=== PATIENT | male | born 1940 | race Caucasian/White ===

== ENCOUNTER 2018-10-27 01:07 | Inpatient (IN) | payer MEDICARE, OTHER ==
[~2018-10-27] VITALS: Ht 177.8 cm; Wt 47.2 kg
[2018-10-27 03:06] LABS: BASOPHILS % (AUTO) 0 % (0-1); EOSINOPHILS # (AUTO) 0.4 X10'3 (0-0.9); EOSINOPHILS % (AUTO) 2.1 % (0-6); HEMOGLOBIN 10.7 g/dl (14.0-17.9); LYMPHOCYTES # (AUTO) 1.3 X10'3 (1.1-4.8); LYMPHOCYTES % (AUTO) 6.8 % (21-51); MEAN CORPUSCULAR HEMOGLOBIN 29.4 PG (27.0-31.0); MEAN CORPUSCULAR HGB CONC 31.5 % (33.0-36.5); MEAN CORPUSCULAR VOLUME 93.3 FL (78-98); MEAN PLATELET VOLUME 8.7 FL (7.4-10.4); MONOCYTES # (AUTO) 0.9 X10'3 (0-0.9); NEUTROPHILS % (AUTO) 86.1 % (42-75); PLATELET COUNT 199 X10'3 (140-440); RED BLOOD COUNT 3.64 X10'6 (4.70-6.10); RED CELL DISTRIBUTION WIDTH 15.2 % (11.5-14.5); WHITE BLOOD COUNT 18.6 X10'3 (4.5-11.0)
[2018-10-27 03:23] LABS: ALANINE AMINOTRANSFERASE 34 U/L (12-78); ALBUMIN 2.7 G/DL (3.4-5.0); ALBUMIN/GLOBULIN RATIO 0.7 (1.1-1.5); ALKALINE PHOSPHATASE 96 IU/L (46-116); ANION GAP -1 (8-16); ASPARTATE AMINO TRANSFERASE 42 U/L (10-37); BILIRUBIN,TOTAL 0.7 MG/DL (0.1-1.0); BLOOD UREA NITROGEN 63 MG/DL (7-18); BUN/CREATININE RATIO 35.8 (5.4-32.0); CALCIUM 9.8 MG/DL (8.5-10.1); CHLORIDE 102 MMOL/L (99-107); CREATININE 1.76 MG/DL (0.60-1.10); GLUCOSE 161 MG/DL (70-104); POTASSIUM 5.4 MMOL/L (3.5-5.1); SODIUM 140 MMOL/L (135-145); TOTAL CARBON DIOXIDE 39.3 MMOL/L (24-32); TOTAL PROTEIN 6.8 G/DL (6.4-8.2); eGFR 38 ML/MIN
[2018-10-27] MEDS: normal saline 1000ml 1,000 ML IV SCH ×2 (04:08→14:44)
[2018-10-27] MEDS ORDERED: acetaminophen 650mg rectal suppository RC PRN (04:10)
[2018-10-27] MEDS ORDERED: ondansetron/PF 4mg/2ml inj IV PRN (04:10)
[2018-10-27] MEDS ORDERED: morphine 4 MG/ML inj SYRINge IV PRN ×2 (04:10)
[2018-10-27] MEDS ORDERED: CARV6.252 PO (04:17)
[2018-10-27] MEDS ORDERED: FURO-150 PO (04:17)
[2018-10-27] MEDS ORDERED: COU2.5T PO (04:17)
[2018-10-27] MEDS ORDERED: POTA10CA44 PO (04:17)
[2018-10-27] MEDS ORDERED: FLO0.4C PO (04:17)
[2018-10-27] MEDS ORDERED: ALPR-623 PO (04:17)
[2018-10-27] MEDS ORDERED: ROSU20TA PO (04:17)
[2018-10-27] MEDS ORDERED: IPRA3AMP31 IH (04:17)
[2018-10-27] MEDS ORDERED: BUDE0.5A11 IH (04:37)
[2018-10-27] MEDS ORDERED: SERIN IH (04:37)
[2018-10-27] MEDS ORDERED: DIGO125T PO (04:37)
[2018-10-27] MEDS ORDERED: AMIO200T40 PO (04:37)
[2018-10-27] MEDS ORDERED: NITR0.4T51 SL (04:37)
[2018-10-27] MEDS ORDERED: LISI-600 PO (04:37)
[2018-10-27] MEDS ORDERED: ASCO500C15 PO (04:39)
[2018-10-27] MEDS ORDERED: ACET-812 PO ×2 (04:39)
[2018-10-27] MEDS ORDERED: TRAZ-218 PO (04:39)
[2018-10-27 06:12] VITALS: BP 119/47
[2018-10-27 06:58] VITALS: BP 119/47
[2018-10-27] MEDS: piperacillin-tazo 2.25gm/50ml 50 ML IV SCH ×3 (09:07→21:26)
[2018-10-27] MEDS ORDERED: vancomycin/NS 1 GM ADD-VANTAGE 250 ML IV SCH (10:00)
[2018-10-27 10:57] LABS: PROTHROMBIN TIME 65.5 SECONDS (9.0-12.0)
[2018-10-27 10:59] LABS: INR 7.4 INR
[2018-10-27] MEDS ORDERED: phytonadione inj. 5 MG in normal saline 100ml IV soln 99.5 ML IV ONE (11:40)
[2018-10-27 11:47] VITALS: BP 104/43
[2018-10-27] MEDS ORDERED: LIDOcaine 1%/PF 5ML 10 MG/ML VIAL ONE (13:11)
[2018-10-27] MEDS ORDERED: nitroGLYCERIN 0.4mg SUBLingual tab SL PRN (13:55)
[2018-10-27] MEDS ORDERED: ALPRAZolam 0.25mg tablet PO PRN (13:55)
[2018-10-27 15:00] VITALS: BP 96/39
[2018-10-27 19:00] VITALS: BP 100/48
[2018-10-27] MEDS: albuterol 2.5 MG/3 ML nebule NEB SCH ×2 (19:54→20:17)
[2018-10-27] MEDS ORDERED: carvedilol 6.25mg tablet PO SCH (20:00)
[2018-10-27] MEDS ORDERED: budesonide 0.5mg/2ml UD nebule IH SCH (20:00)
[2018-10-27] MEDS ORDERED: lactobacillus rhamnosus 10,000 MMU CELLS/CAPSULE PO SCH (20:00)
[2018-10-27] MEDS ORDERED: linezolid 600mg/300ml PREMIX 300 ML IV SCH (20:00)
[2018-10-27] MEDS ORDERED: traZODone 50mg tablet PO SCH (21:00)
[2018-10-28] MEDS ORDERED: ascorbic acid 500mg tablet PO SCH (08:00)
[2018-10-28] MEDS ORDERED: lisinopril 10 MG tablet PO SCH (08:00)
[2018-10-28] MEDS ORDERED: warfarin 2.5mg tablet PO SCH (08:00)
[2018-10-28] MEDS ORDERED: atorvastatin 20mg tablet PO SCH (08:00)
[2018-10-28] MEDS ORDERED: potassium chloride 10mEq CAPSULE.SA PO SCH (08:00)
[2018-10-28] MEDS ORDERED: amiodarone 200mg tablet PO SCH (08:00)
[2018-10-28] MEDS ORDERED: potassium chloride 10mEq ER tablet PO SCH (08:00)
[2018-10-28] MEDS ORDERED: digoxin 125mcg (0.125mg) tablet PO SCH (08:00)
[2018-10-28] MEDS ORDERED: tamsulosin 0.4mg capsule PO SCH (08:00)
[2018-10-28] MEDS ORDERED: furosemide 20MG tablet PO SCH (08:00)
[2018-10-30] MEDS ORDERED: VANCOMYCIN LEVEL IV ONE (09:30)
== END 2018-10-27 22:00 | disposition expired | DRG 177 ==
LOC: ER 01:08 → ED HOLD 04:08 → PCU 3S 05:56
PROVIDERS: ADMIT Internal Medicine; ATTEND Family Medicine
DX: J86.9 Pyothorax without fistula (principal); J96.90 Respiratory failure, unspecified, unspecified whether with hypoxia or hypercapnia; J18.9 Pneumonia, unspecified organism; R64 Cachexia; Z68.1 Body mass index [BMI] 19.9 or less, adult; I13.0 Hypertensive heart and chronic kidney disease with heart failure and stage 1 through stage 4 chronic kidney disease, or unspecified chronic kidney disease; I42.9 Cardiomyopathy, unspecified; J44.0 Chronic obstructive pulmonary disease with (acute) lower respiratory infection; E11.51 Type 2 diabetes mellitus with diabetic peripheral angiopathy without gangrene; I25.10 Atherosclerotic heart disease of native coronary artery without angina pectoris; I48.91 Unspecified atrial fibrillation; I50.9 Heart failure, unspecified; E11.22 Type 2 diabetes mellitus with diabetic chronic kidney disease; N18.3 Chronic kidney disease, stage 3 (moderate); Z66 Do not resuscitate; Z95.810 Presence of automatic (implantable) cardiac defibrillator; Z95.1 Presence of aortocoronary bypass graft; Z90.49 Acquired absence of other specified parts of digestive tract; Z95.2 Presence of prosthetic heart valve; Z79.01 Long term (current) use of anticoagulants; Z79.899 Other long term (current) drug therapy; Z86.79 Personal history of other diseases of the circulatory system; Z87.891 Personal history of nicotine dependence
CPT/HCPCS: 36415; 71045; 80053; 83605; 84484; 85025; 85610; 87070; 94640; 94760; 99285; G0378; J2001; J2020; J2543; J3370; J3430; J7030; J7626